=== PATIENT | female | born 1960 | race Caucasian/White ===

== ENCOUNTER 2017-06-03 08:22 | Day surgery (SDC) | payer BC ==
[~2017-06-03 08:22] MED LIST: Cefuroxime 10 MG/ML SYRINGE EYERT SCH; Lidocaine 1% PF 2 ML SDV INJECT SCH; Pilocarpine 4% Ophth Soln 15 ML Bot EYERT SCH
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
[2017-06-03] MEDS: Polymyxin B/Trimethoprim 10 ML Bottle EYERT SCH ×3 (09:06→10:44)
[2017-06-03] MEDS: Brimonidine 0.2% Ophth Soln 5 ML Bottle EYERT SCH ×3 (09:12→10:44)
[2017-06-03] MEDS: Phenylephrine 2.5% Ophth Soln 2 ML Bot EYERT SCH ×5 (09:19→10:28)
[2017-06-03] MEDS ORDERED: Sodium Chloride 0.9% 10 ML Syringe FLUSH PRN (09:52)
[2017-06-03] MEDS: Tetracaine HCl/PF 0.5% 4 ML Bottle EYERT SCH ×2 (10:25→10:38)
[2017-06-03] MEDS ORDERED: Midazolam 1 MG/ML 2 ML SDV ONE (10:27)
--- NOTE | 2017-06-03 10:45 | PCM48HPAN ---
Post Anesthesia Note - EVALUATION WITHIN 48HRS OF ANESTHETIC Vital Signs in Normal Range: Yes Patient Participated in Evaluation: Yes Respiratory Function Stable: Yes Airway Patent: Yes Cardiovascular Function Stable: Yes Hydration Status Stable: Yes Pain Control Satisfactory: Yes Nausea and Vomiting Control Satisfactory: Yes Mental Status Recovered: Yes Pulse Rate: 82 Resp Rate: 18 Temperature: 97 C Blood Pressure: 121/98
== END 2017-06-03 11:10 | disposition home or self-care (01) ==
LOC: JD.SDS 08:22
PROVIDERS: ATTEND Ophthalmology
DX: H25.813 Combined forms of age-related cataract, bilateral (principal); H50.012 Monocular esotropia, left eye; H18.59 Other hereditary corneal dystrophies; H35.373 Puckering of macula, bilateral; H16.223 Keratoconjunctivitis sicca, not specified as Sjogren's, bilateral; H16.103 Unspecified superficial keratitis, bilateral; E11.9 Type 2 diabetes mellitus without complications; D64.9 Anemia, unspecified; E78.00 Pure hypercholesterolemia, unspecified; I10 Essential (primary) hypertension; K21.9 Gastro-esophageal reflux disease without esophagitis; M79.7 Fibromyalgia; E03.9 Hypothyroidism, unspecified; Z79.82 Long term (current) use of aspirin; Z79.899 Other long term (current) drug therapy; Z79.84 Long term (current) use of oral hypoglycemic drugs; Z87.442 Personal history of urinary calculi; Z98.51 Tubal ligation status; Z98.890 Other specified postprocedural states; Z88.1 Allergy status to other antibiotic agents; Z88.6 Allergy status to analgesic agent; Z88.8 Allergy status to other drugs, medicaments and biological substances; Z91.012 Allergy to eggs
CPT/HCPCS: 66984; C1780; J0697; J2250; A9270-GY; J2001

== ENCOUNTER 2017-09-02 06:54 | Day surgery (SDC) | payer BC ==
[~2017-09-02 06:54] MED LIST changes: +Cefuroxime 10 MG/ML SYRINGE EYELF SCH; -Cefuroxime 10 MG/ML SYRINGE EYERT SCH; +Pilocarpine 4% Ophth Soln 15 ML Bot EYELF SCH; -Pilocarpine 4% Ophth Soln 15 ML Bot EYERT SCH
[2017-09-02] MEDS: Polymyxin B/Trimethoprim 10 ML Bottle EYELF SCH ×3 (07:06→08:33)
[2017-09-02] MEDS: Brimonidine 0.2% Ophth Soln 5 ML Bottle EYELF SCH ×3 (07:11→08:33)
[2017-09-02] MEDS: Phenylephrine 2.5% Ophth Soln 2 ML Bot EYELF SCH ×5 (07:17→08:11)
--- NOTE | 2017-09-02 07:19 | PCM.PREANE ---
Preanesthetic Assessment - Anesthesia/Transfusion/Family Hx Anesthesia History: Prior Anesthesia Reaction (PAUL) Family History of Anesthesia Reaction: No Transfusion History: Prior Transfusion Without Reaction Intubation History: Unknown - Review of Systems General: No Symptoms Pulmonary: No Symptoms Cardiovascular: No Symptoms Gastrointestinal: No Symptoms Neurological: No Symptoms Other: Reports: None - Physical Assessment NPO Status Date: 09/01/17 NPO Status Time: 19:30 Pulse: 77 O2 Sat by Pulse Oximetry: 97 Respiratory Rate: 16 Blood Pressure: 129/81 Temperature: 98.7 C ASA Class: 2 Mental Status: Alert & Oriented x3 Airway Class: Mallampati = 1 Dentition: Reports: Normal Dentition Thyro-Mental Finger Breadths: 3 Mouth Opening Finger Breadths: 3 ROM/Head Extension: Full Lungs: Clear to Auscultation, Normal Respiratory Effort Cardiovascular: Regular Rate, Regular Rhythm - Allergies Allergies/Adverse Reactions: Allergies Allergy/AdvReac Type Severity Reaction Status Date / Time ciprofloxacin [From Cipro] AdvReac Nausea Verified 09/01/17 14:12 dantrolene AdvReac Dizziness Verified 09/01/17 14:12 egg AdvReac Nausea Verified 09/01/17 14:12 tramadol AdvReac Dizziness Verified 09/01/17 14:12 - Anesthesia Plan Beta Betty: Atenolol Med Last Dose Date: 09/02/17 Med Last Dose Time: 19:00 - Acknowledgements Anesthesia Type Planned: MAC Pt an Appropriate Candidate for the Planned Anesthesia: Yes Alternatives and Risks of Anesthesia Discussed w Pt/Guardian: Yes Pt/Guardian Understands and Agrees with Anesthesia Plan: Yes PreAnesthesia Questionnaire HEENT History: Reports: Cataract, Hard of Hearing, Other (See Below) (Dry Mouth) Cardiovascular History: Reports: Heart Murmur, Hypertension, Other (See Below) ( Tachycardia) Other Cardiovascular History: hx tachycardia Respiratory History: Reports: None Gastrointestinal History: Reports: GERD (tx with nexium with success) Genitourinary History: Reports: Renal Calculus Musculoskeletal History: Reports: Fibromyalgia Other Musculoskeletal History: Headache, muscle aches, numbness in left leg Neurological History: Reports: Headaches, Chronic, Neuropathy, Peripheral Psychiatric History: Reports: None Endocrine/Metabolic History: Reports: Diabetes, Type II (BS 108 @ 0530), Hypothyroidism Other Endocrine/Metabolic History: 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 Hematologic History: Reports: Anemia (Transfusions in the past), Blood Transfusion(s), Other (See Below) (High Cholesterol) Other Immunologic History: Raynauds - Infectious Disease History Infectious Disease History: Reports: None - Past Surgical History Head Surgeries/Procedures: Reports: None HEENT Surgical History: Reports: Cataract Surgery Cardiovascular Surgical History: Reports: None Respiratory Surgical History: Reports: None GI Surgical History: Reports: Cholecystectomy Female Surgical History: Reports: D&C, Kidney stone extraction, Lithotripsy/ ESWL, Tubal Ligation Endocrine Surgical History: Reports: None, Other (See Below) (parathyroid "tumor " per pt) Neurological Surgical History: Reports: Laminectomy Musculoskeletal Surgical History: Reports: None Oncologic Surgical History: Reports: None Dermatological Surgical History: Reports: None - HOME MEDS Home Medications: Home Meds Aspirin/Acetaminophen/Caffeine [Migraine Formula Caplet] 1 - 2 tab PO Q6H PRN [History] Atenolol 50 mg PO DAILY 06/02/17 [History] Cyclobenzaprine HCl 10 mg PO BEDTIME PRN 06/02/17 [History] Esomeprazole Magnesium 40 mg PO DAILY 06/02/17 [History] Naltrexone 50 mg PO BID 06/02/17 [History] buPROPion HCl [Wellbutrin Xl] 150 mg PO BID 06/02/17 [History] metFORMIN HCl [Metformin HCl ER] 500 mg PO BEDTIME 06/02/17 [History] - CURRENT (IN HOUSE) MEDS Current Meds: Current Medications Brimonidine Tartrate (Alphagan 0.2% Ophth Soln) 0 ml EYELF ASDIRECTED YOUNG Stop: 09/02/17 18:00 Last Admin: 09/02/17 07:11 Dose: 1 drop Cefuroxime Sodium (Zinacef) 0 mg EYELF ASDIRECTED YOUNG Stop: 09/02/17 18:00 Lidocaine HCl (Xylocaine-Mpf 1%) 0 ml INJECT ASDIRECTED YOUNG Stop: 09/02/17 18:00 Phenylephrine HCl (Timothy-Synephrine 2.5% Ophth Soln) 0 ml EYELF ASDIRECTED YOUNG Stop: 09/02/17 18:00 Pilocarpine HCl (Pilocar 4% Ophth Soln) 0 ml EYELF ASDIRECTED YOUNG Stop: 09/02/17 18:00 Polymyxin/Trimethoprim Sulfate (Polytrim Ophth Soln) 0 ml EYELF ASDIRECTED YOUNG Stop: 09/02/17 18:00 Last Admin: 09/02/17 07:06 Dose: 1 drop Tetracaine HCl (Tetracaine 0.5% Steri-Unit Tasia) 0 ml EYELF ASDIRECTED YOUNG Stop: 09/02/17 18:00 Tropicamide (Mydriacyl 1% Ophth Soln) 0 ml EYELF ASDIRECTED YOUNG Stop: 09/02/17 18:00
[2017-09-02] MEDS: Tropicamide 1% Ophth Soln 3 ML Bottle EYELF SCH ×4 (07:22→07:55)
[2017-09-02] MEDS ORDERED: Diazepam 5 MG Tab PO ONE (07:45)
[2017-09-02] MEDS: Tetracaine HCl/PF 0.5% 4 ML Bottle EYELF SCH ×2 (08:02→08:23)
--- NOTE | 2017-09-02 08:35 | PCM48HPAN ---
Post Anesthesia Note - EVALUATION WITHIN 48HRS OF ANESTHETIC Vital Signs in Normal Range: Yes Patient Participated in Evaluation: Yes Respiratory Function Stable: Yes Airway Patent: Yes Cardiovascular Function Stable: Yes Hydration Status Stable: Yes Pain Control Satisfactory: Yes Nausea and Vomiting Control Satisfactory: Yes Mental Status Recovered: Yes Pulse Rate: 81 SaO2: 98 Resp Rate: 14 Temperature: 98.7 C Blood Pressure: 153/85
== END 2017-09-02 08:45 | disposition home or self-care (01) ==
LOC: JD.SDS 06:54
PROVIDERS: ATTEND Ophthalmology
DX: E11.36 Type 2 diabetes mellitus with diabetic cataract (principal); H25.812 Combined forms of age-related cataract, left eye; I10 Essential (primary) hypertension; H91.90 Unspecified hearing loss, unspecified ear; E78.00 Pure hypercholesterolemia, unspecified; H50.012 Monocular esotropia, left eye; E03.9 Hypothyroidism, unspecified; Z79.84 Long term (current) use of oral hypoglycemic drugs; Z79.899 Other long term (current) drug therapy; Z98.41 Cataract extraction status, right eye; Z96.1 Presence of intraocular lens; Z88.1 Allergy status to other antibiotic agents; Z88.5 Allergy status to narcotic agent; Z88.8 Allergy status to other drugs, medicaments and biological substances; Z91.012 Allergy to eggs
CPT/HCPCS: 66984; A9270; C1780; J0697; J2001

== ENCOUNTER 2020-05-08 01:09 | Emergency (ER) | payer BC ==
[2020-05-08] MEDS ORDERED: Ondansetron 4 MG/2 ML SDV IVPUSH ONE ×2 (01:32→03:59)
[2020-05-08] MEDS ORDERED: HYDROmorphone 1 MG/ML Syringe IVPUSH STA (01:32)
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
[2020-05-08] MEDS ORDERED: Sodium Chloride 0.9% 1,000 ML IV SCH (01:45)
[2020-05-08] MEDS ORDERED: Iopamidol 612 MG/ML 100 ML Bottle IVPUSH ONE (02:06)
[2020-05-08] MEDS ORDERED: Sodium Chloride 0.9% 100 ML IV SCH (02:15)
[2020-05-08] MEDS ORDERED: Sodium Chloride 0.9% 10 ML Syringe FLUSH SCH (02:15)
[2020-05-08] MEDS ORDERED: Sodium Chloride 0.9% 1,000 ML IV ONE (03:14)
--- NOTE | 2020-05-08 08:19 | CT ---
CT abdomen and pelvis Technique: Multiple axial sections were obtained from above the dome of the diaphragm inferiorly through the pubic symphysis. Intravenous and oral contrast was utilized. Delayed images were also obtained through the abdomen and pelvis. Reconstructed coronal and sagittal images were obtained. Comparison: No prior abdominal imaging is available. Findings: Visualized lung bases show nothing acute. Liver shows diffuse fatty infiltration. Two low density lesions are seen within the liver which do not appear to represent cysts and most likely represent small hemangiomas which measure less than 1 cm. Spleen is normal. Small to moderate size hiatal hernia is seen. Diffuse gastroesophageal reflux of contrast is seen. Adrenal glands show no nodule. No abnormality is appreciated within the pancreas. Kidneys show symmetric contrast enhancement without hydronephrosis or mass. Delayed images show contrast within the collecting system of both kidneys which show no filling defects. Contrast is also noted within the ureters and bladder. Abdominal aorta shows no aneurysm. Gallbladder is not visualized. No retroperitoneal adenopathy or mesenteric abnormalities are seen. No pelvic mass or adenopathy is seen. Uterus appears normal in size. Small fat-containing umbilical hernia is noted. Minimal degenerative change is seen within the spine. Deformity is noted within the posterior left seventh rib compatible with old healed fracture. Appendix is not visualized with certainty. Impression: 1. Fatty infiltration within the liver. Two small abnormalities are seen within the liver which are most likely solid and statistically are most likely due to small hemangiomas. 2. Hiatal hernia with gastroesophageal reflux of contrast. 3. Nothing acute is otherwise seen on CT study of the abdomen and pelvis. Diagnostic code #2 I agree with preliminary report from [facility], finalized on 05/08/20, 4:53 AM CDT
== END 2020-05-08 04:44 | disposition home or self-care (01) ==
LOC: JD.ED 01:09
DX: R10.84 Generalized abdominal pain (principal); R73.9 Hyperglycemia, unspecified; E87.0 Hyperosmolality and hypernatremia; D72.829 Elevated white blood cell count, unspecified; I10 Essential (primary) hypertension; K21.9 Gastro-esophageal reflux disease without esophagitis; E66.9 Obesity, unspecified; Z68.41 Body mass index [BMI] 40.0-44.9, adult; Z88.1 Allergy status to other antibiotic agents; Z91.012 Allergy to eggs; Z88.5 Allergy status to narcotic agent; Z88.8 Allergy status to other drugs, medicaments and biological substances; Z79.82 Long term (current) use of aspirin; Z79.899 Other long term (current) drug therapy
CPT/HCPCS: 36415; 74177; 80053; 81001; 83690; 83735; 85007; 85027; 96374; 96375; 96376; 99284; J1170; J2405; J7030; Q9967

== ENCOUNTER 2023-02-14 20:34 | Inpatient (IN) | payer BC ==
[2023-02-14] MEDS ORDERED: Sodium Chloride 0.9% 10 ML Syringe FLUSH PRN (20:58)
[2023-02-14 21:22] LABS: HEMATOCRIT 32.2 % (37.0-47.0); HEMOGLOBIN 10.7 gm/dl (12.0-16.0); MEAN CORPUSCULAR HEMOGLOBIN 31.8 pg (28.0-32.0); MEAN CORPUSCULAR HGB CONC 33.2 g/dl (32.0-36.0); MEAN CORPUSCULAR VOLUME 95.5 fl (83.0-99.0); MEAN PLATELET VOLUME 9.9 fl (9.4-12.3); NRBC ABSOLUTE 0.03 (0.00-0.02); NRBC PERCENT 3.2 % (0.0-0.2); PLATELET COUNT,PLT 142 K/mm3 (150-400); RED BLOOD CELL COUNT 3.37 M/mm3 (4.10-5.30)
[2023-02-14 21:27] LABS: WHITE BLOOD CELL COUNT,WBC 0.94 K/mm3 (3.9-11.3)
[2023-02-14 21:39] LABS: INR 1.02; PROTHROMBIN TIME 10.9 SECONDS (9.7-12.0)
[2023-02-14] MEDS ORDERED: Ondansetron 4 MG/2 ML SDV IVPUSH ONE (21:49)
[2023-02-14] MEDS ORDERED: Sodium Chloride 0.9% 1,000 ML IV STA (21:49)
[2023-02-14 21:50] LABS: LACTIC ACID 2.4 mmol/L (0.4-2.0)
[2023-02-14 21:53] LABS: A/G RATIO 0.9 (1-2); ALBUMIN 3.7 g/dl (3.4-5.0); ANION GAP 14.9 (5-15); BILIRUBIN TOTAL 0.6 mg/dL (0.2-1.0); BUN/CREATININE RATIO 5.5 (14-18); C-REACTIVE PROTEIN 10.7 mg/dL (<1.0); CALCIUM 9.3 mg/dL (8.5-10.1); CREATININE 1.1 mg/dL (0.55-1.02); EST CRCL DRUG DOSING (CG) 50.9 mL/min; POTASSIUM,K 3.9 mEq/L (3.5-5.1); PROTEIN TOTAL,TP 7.7 g/dl (6.4-8.2)
[2023-02-14] MEDS ORDERED: Piperacillin/Tazobactam 4.5 GM in Sodium Chloride 0.9% 100 ML IV ONE (22:11)
[2023-02-14] MEDS ORDERED: Acetaminophen 325 MG Tab PO ONE (22:11)
[2023-02-14] MEDS ORDERED: Lidocaine/Epineph/Tetracaine 3 ML Syringe TOP ONE (22:20)
[2023-02-14 22:38] LABS: BAND PERCENT MAN 0 % (0-10); BASOPHILS PERCENT MAN 0 (0.1-1.2); EOSINOPHILS PERCENT MAN 0 % (0.7-5.8); LYMPHOCYTES % ATYPICAL MANUAL 0 %; LYMPHOCYTES PERCENT MAN 87 % (20-40); MONOCYTES PERCENT MAN 4 % (2-10)
[2023-02-14 22:41] LABS: PLATELET COUNT ESTIMATE DECREASED
[2023-02-14 22:43] LABS: CORONAVIRUS COVID-19 NAA NEGATIVE (NEGATIVE); INFLUENZA A NAA NEGATIVE (NEGATIVE); RESPIRATORY SYNCYTIAL VIR NAA NEGATIVE (NEGATIVE)
[2023-02-14 22:44] LABS: OVALOCYTES 1+ SLIGHT; STOMATOCYTES 1+ SLIGHT
[2023-02-14 22:50] LABS: APPEARANCE,URINE CLEAR (Clear); BILIRUBIN,URINE NEGATIVE (Negative); COLOR,URINE YELLOW (Yellow); GLUCOSE,URINE 1+ (Negative); KETONES,URINE 1+ (Negative); LEUKOCYTE ESTERASE,URINE NEGATIVE (Negative); NITRITE,URINE NEGATIVE (Negative); OCCULT BLOOD,URINE NEGATIVE (Negative); PROTEIN,URINE NEGATIVE (Negative); UROBILINOGEN,URINE 0.2 (0.2-1.0)
[2023-02-15] MEDS: METAXALONE 800 MG PO SCH ×3 (00:48→23:30)
[2023-02-15] MEDS: Sodium Chloride 0.9% 1,000 ML IV SCH ×3 (00:51→23:19)
[2023-02-15] MEDS: Acetaminophen 325 MG Tab PO PRN ×3 (05:21→23:19)
[2023-02-15] MEDS: Ondansetron 4 MG/2 ML SDV IVPUSH PRN ×2 (05:21→17:46)
[2023-02-15] MEDS: Piperacillin/Tazobactam 4.5 GM in Sodium Chloride 0.9% 100 ML IV SCH ×3 (05:22→22:27)
[2023-02-15 05:27] LABS: BASOPHILS PERCENT AUTO 1.8 % (0.0-1.0); HEMATOCRIT 25.7 % (37.0-47.0); LYMPHOCYTES ABSOLUTE AUTO 0.4 K/mm3 (1.0-4.8); LYMPHOCYTES PERCENT AUTO 61.4 % (24.0-44.0); MEAN CORPUSCULAR HEMOGLOBIN 32.1 pg (28.0-32.0); MEAN CORPUSCULAR HGB CONC 33.9 g/dl (32.0-36.0); MEAN CORPUSCULAR VOLUME 94.8 fl (83.0-99.0); MONOCYTES ABSOLUTE AUTO 0.2 K/mm3 (0.0-0.8); MONOCYTES PERCENT AUTO 28.1 % (0.0-8.0); NEUTROPHILS ABSOLUTE AUTO 0.1 K/mm3 (1.8-7.7); NEUTROPHILS PERCENT AUTO 8.7 % (41.0-71.0); NRBC ABSOLUTE 0.02 (0.00-0.02); NRBC PERCENT 3.5 % (0.0-0.2); PLATELET COUNT,PLT 109 K/mm3 (150-400); RED BLOOD CELL COUNT 2.71 M/mm3 (4.10-5.30)
[2023-02-15 05:34] LABS: HEMOGLOBIN 8.7 gm/dl (12.0-16.0); WHITE BLOOD CELL COUNT,WBC 0.57 K/mm3 (3.9-11.3)
[2023-02-15 05:57] LABS: ANION GAP 12.6 (5-15); BUN/CREATININE RATIO 7.1 (14-18); CALCIUM 8.1 mg/dL (8.5-10.1); CREATININE 0.7 mg/dL (0.55-1.02); EST CRCL DRUG DOSING (CG) 79.99 mL/min; POTASSIUM,K 3.6 mEq/L (3.5-5.1)
[2023-02-15 06:09] LABS: SLIDE REVIEW ABNORMAL SMEAR
[2023-02-15] MEDS ORDERED: Ondansetron 4 MG Tab.DIS PO PRN (06:35)
[2023-02-15] MEDS: Heparin Sodium 5,000 Units/ML Vial SUBCUT SCH ×3 (06:58→22:28)
[2023-02-15] MEDS: Pantoprazole 40 MG Tab.CR PO SCH (07:42)
[2023-02-15] MEDS ORDERED: Atenolol 50 MG Tab PO SCH (09:00)
[2023-02-15] MEDS: Atenolol 25 MG Tab PO SCH (11:20)
[2023-02-15] MEDS ORDERED: NALTREXONE PO SCH (11:30)
[2023-02-15] MEDS ORDERED: BUPROPION PO SCH (11:30)
[2023-02-15] MEDS: metFORMIN 500 MG Tab PO SCH (17:22)
[2023-02-15] MEDS ORDERED: metFORMIN 500 MG Tab PO SCH (21:00)
[2023-02-16 05:32] LABS: BASOPHILS PERCENT AUTO 1.9 % (0.0-1.0); EOSINOPHILS PERCENT AUTO 0.9 % (0.0-6.0); HEMATOCRIT 26.4 % (37.0-47.0); HEMOGLOBIN 8.7 gm/dl (12.0-16.0); LYMPHOCYTES ABSOLUTE AUTO 0.7 K/mm3 (1.0-4.8); LYMPHOCYTES PERCENT AUTO 60.7 % (24.0-44.0); MEAN CORPUSCULAR HEMOGLOBIN 32.1 pg (28.0-32.0); MEAN CORPUSCULAR VOLUME 97.4 fl (83.0-99.0); MEAN PLATELET VOLUME 9.3 fl (9.4-12.3); MONOCYTES ABSOLUTE AUTO 0.3 K/mm3 (0.0-0.8); NEUTROPHILS ABSOLUTE AUTO 0.1 K/mm3 (1.8-7.7); NEUTROPHILS PERCENT AUTO 7.5 % (41.0-71.0); PLATELET COUNT,PLT 141 K/mm3 (150-400); RED BLOOD CELL COUNT 2.71 M/mm3 (4.10-5.30)
[2023-02-16 05:43] LABS: WHITE BLOOD CELL COUNT,WBC 1.07 K/mm3 (3.9-11.3)
[2023-02-16] MEDS: Piperacillin/Tazobactam 4.5 GM in Sodium Chloride 0.9% 100 ML IV SCH ×3 (05:46→21:47)
[2023-02-16] MEDS: Heparin Sodium 5,000 Units/ML Vial SUBCUT SCH ×3 (05:47→21:46)
[2023-02-16] MEDS: Pantoprazole 40 MG Tab.CR PO SCH (05:47)
[2023-02-16 05:52] LABS: A/G RATIO 0.8 (1-2); ALBUMIN 2.7 g/dl (3.4-5.0); ANION GAP 15.2 (5-15); BILIRUBIN TOTAL 0.5 mg/dL (0.2-1.0); BUN/CREATININE RATIO 8.6 (14-18); CALCIUM 8.4 mg/dL (8.5-10.1); CREATININE 0.7 mg/dL (0.55-1.02); EST CRCL DRUG DOSING (CG) 79.99 mL/min; POTASSIUM,K 3.2 mEq/L (3.5-5.1); PROTEIN TOTAL,TP 6.2 g/dl (6.4-8.2)
[2023-02-16 06:20] LABS: SLIDE REVIEW ABNORMAL SMEAR
[2023-02-16] MEDS: metFORMIN 500 MG Tab PO SCH ×2 (07:17→17:21)
[2023-02-16] MEDS: Acetaminophen 325 MG Tab PO PRN ×4 (07:18→21:48)
[2023-02-16] MEDS: Sodium Chloride 0.9% 1,000 ML IV SCH ×2 (09:28→21:47)
[2023-02-16] MEDS: Atenolol 25 MG Tab PO SCH ×2 (09:32→20:22)
[2023-02-16] MEDS: BUPROPION PO SCH (09:32)
[2023-02-16] MEDS: NALTREXONE PO SCH (09:32)
[2023-02-16] MEDS: METAXALONE 800 MG PO SCH ×2 (11:43→20:25)
[2023-02-17] MEDS: Heparin Sodium 5,000 Units/ML Vial SUBCUT SCH ×3 (05:10→21:11)
[2023-02-17] MEDS: Pantoprazole 40 MG Tab.CR PO SCH (05:10)
[2023-02-17] MEDS: Piperacillin/Tazobactam 4.5 GM in Sodium Chloride 0.9% 100 ML IV SCH ×3 (05:11→21:04)
[2023-02-17 05:31] LABS: BASOPHILS PERCENT AUTO 0.8 % (0.0-1.0); EOSINOPHILS PERCENT AUTO 1.6 % (0.0-6.0); HEMATOCRIT 24.5 % (37.0-47.0); HEMOGLOBIN 8.1 gm/dl (12.0-16.0); IMMATURE GRAN ABSOLUTE AUTO 0.01 K/mm3 (0.00-0.05); IMMATURE GRAN PERCENT AUTO 0.8 % (0.0-0.4); LYMPHOCYTES ABSOLUTE AUTO 0.6 K/mm3 (1.0-4.8); LYMPHOCYTES PERCENT AUTO 44.4 % (24.0-44.0); MEAN CORPUSCULAR HEMOGLOBIN 31.6 pg (28.0-32.0); MEAN CORPUSCULAR HGB CONC 33.1 g/dl (32.0-36.0); MEAN CORPUSCULAR VOLUME 95.7 fl (83.0-99.0); MEAN PLATELET VOLUME 9.7 fl (9.4-12.3); MONOCYTES ABSOLUTE AUTO 0.4 K/mm3 (0.0-0.8); MONOCYTES PERCENT AUTO 32.3 % (0.0-8.0); NEUTROPHILS ABSOLUTE AUTO 0.3 K/mm3 (1.8-7.7); NEUTROPHILS PERCENT AUTO 20.1 % (41.0-71.0); NRBC ABSOLUTE 0.02 (0.00-0.02); NRBC PERCENT 1.6 % (0.0-0.2); PLATELET COUNT,PLT 203 K/mm3 (150-400); RED BLOOD CELL COUNT 2.56 M/mm3 (4.10-5.30)
[2023-02-17 05:42] LABS: WHITE BLOOD CELL COUNT,WBC 1.24 K/mm3 (3.9-11.3)
[2023-02-17 05:57] LABS: A/G RATIO 0.7 (1-2); ALBUMIN 2.4 g/dl (3.4-5.0); ANION GAP 14.2 (5-15); BILIRUBIN TOTAL 0.3 mg/dL (0.2-1.0); BUN/CREATININE RATIO 5.7 (14-18); CREATININE 0.7 mg/dL (0.55-1.02); EST CRCL DRUG DOSING (CG) 79.99 mL/min; POTASSIUM,K 3.2 mEq/L (3.5-5.1); PROTEIN TOTAL,TP 5.7 g/dl (6.4-8.2)
[2023-02-17 06:13] LABS: SLIDE REVIEW ABNORMAL SMEAR
[2023-02-17] MEDS: metFORMIN 500 MG Tab PO SCH ×2 (07:30→17:21)
[2023-02-17] MEDS: Acetaminophen 325 MG Tab PO PRN ×2 (07:31→19:58)
[2023-02-17] MEDS: Sodium Chloride 0.9% 1,000 ML IV SCH ×2 (07:35→15:15)
[2023-02-17] MEDS: METAXALONE 800 MG PO SCH ×3 (09:35→20:00)
[2023-02-17] MEDS: BUPROPION PO SCH (09:35)
[2023-02-17] MEDS: NALTREXONE PO SCH (09:35)
[2023-02-17] MEDS: Atenolol 25 MG Tab PO SCH ×2 (19:58→20:53)
[2023-02-18] MEDS: Sodium Chloride 0.9% 1,000 ML IV SCH (01:14)
[2023-02-18] MEDS: Piperacillin/Tazobactam 4.5 GM in Sodium Chloride 0.9% 100 ML IV SCH ×3 (06:18→21:14)
[2023-02-18] MEDS: metFORMIN 500 MG Tab PO SCH ×2 (06:18→16:48)
[2023-02-18] MEDS: Heparin Sodium 5,000 Units/ML Vial SUBCUT SCH ×3 (06:18→21:14)
[2023-02-18] MEDS: Pantoprazole 40 MG Tab.CR PO SCH (06:18)
[2023-02-18] MEDS: NALTREXONE PO SCH (08:41)
[2023-02-18] MEDS: BUPROPION PO SCH (08:41)
[2023-02-18] MEDS ORDERED: Ketorolac 10 MG Tab PO PRN (10:52)
[2023-02-18] MEDS: METAXALONE 800 MG PO SCH ×3 (11:11→21:14)
[2023-02-18] MEDS: Saccharomyces Boulardii (Probiotic) 250 MG Cap PO SCH (11:15)
[2023-02-18 11:41] LABS: BASOPHILS PERCENT AUTO 1.9 % (0.0-1.0); EOSINOPHILS PERCENT AUTO 0.5 % (0.0-6.0); HEMATOCRIT 26.5 % (37.0-47.0); HEMOGLOBIN 8.7 gm/dl (12.0-16.0); IMMATURE GRAN ABSOLUTE AUTO 0.12 K/mm3 (0.00-0.05); IMMATURE GRAN PERCENT AUTO 5.7 % (0.0-0.4); LYMPHOCYTES ABSOLUTE AUTO 0.6 K/mm3 (1.0-4.8); LYMPHOCYTES PERCENT AUTO 26.9 % (24.0-44.0); MEAN CORPUSCULAR HEMOGLOBIN 30.9 pg (28.0-32.0); MEAN CORPUSCULAR HGB CONC 32.8 g/dl (32.0-36.0); MEAN PLATELET VOLUME 9.3 fl (9.4-12.3); MONOCYTES ABSOLUTE AUTO 0.5 K/mm3 (0.0-0.8); MONOCYTES PERCENT AUTO 25.5 % (0.0-8.0); NEUTROPHILS ABSOLUTE AUTO 0.8 K/mm3 (1.8-7.7); NEUTROPHILS PERCENT AUTO 39.5 % (41.0-71.0); NRBC ABSOLUTE 0.06 (0.00-0.02); NRBC PERCENT 2.8 % (0.0-0.2); PLATELET COUNT,PLT 289 K/mm3 (150-400); RED BLOOD CELL COUNT 2.82 M/mm3 (4.10-5.30)
[2023-02-18 11:52] LABS: WHITE BLOOD CELL COUNT,WBC 2.12 K/mm3 (3.9-11.3)
[2023-02-18 12:10] LABS: SLIDE REVIEW ABNORMAL SMEAR
[2023-02-18] MEDS ORDERED: Potassium Chloride 20 MEQ Tab.ER PO ONE (13:16)
[2023-02-18] MEDS ORDERED: Potassium Bicarbonate/Cit Ac 20 MEQ Effervescent Tab PO ONE ×2 (15:00→17:00)
[2023-02-18] MEDS: Acetaminophen 325 MG Tab PO PRN ×2 (15:19→21:13)
[2023-02-18] MEDS: Atenolol 25 MG Tab PO SCH (21:14)
[2023-02-19 05:33] LABS: BASOPHILS PERCENT AUTO 1.7 % (0.0-1.0); HEMATOCRIT 26.1 % (37.0-47.0); HEMOGLOBIN 8.7 gm/dl (12.0-16.0); IMMATURE GRAN PERCENT AUTO 8.6 % (0.0-0.4); LYMPHOCYTES ABSOLUTE AUTO 0.9 K/mm3 (1.0-4.8); LYMPHOCYTES PERCENT AUTO 38.2 % (24.0-44.0); MEAN CORPUSCULAR HGB CONC 33.3 g/dl (32.0-36.0); MEAN CORPUSCULAR VOLUME 92.9 fl (83.0-99.0); MEAN PLATELET VOLUME 9.1 fl (9.4-12.3); MONOCYTES ABSOLUTE AUTO 0.6 K/mm3 (0.0-0.8); NEUTROPHILS ABSOLUTE AUTO 0.6 K/mm3 (1.8-7.7); NEUTROPHILS PERCENT AUTO 27.5 % (41.0-71.0); NRBC PERCENT 4.3 % (0.0-0.2); PLATELET COUNT,PLT 318 K/mm3 (150-400); RED BLOOD CELL COUNT 2.81 M/mm3 (4.10-5.30)
[2023-02-19 06:22] LABS: WHITE BLOOD CELL COUNT,WBC 2.33 K/mm3 (3.9-11.3)
[2023-02-19] MEDS: Heparin Sodium 5,000 Units/ML Vial SUBCUT SCH ×2 (06:23→14:15)
[2023-02-19] MEDS: Piperacillin/Tazobactam 4.5 GM in Sodium Chloride 0.9% 100 ML IV SCH (06:23)
[2023-02-19] MEDS: Pantoprazole 40 MG Tab.CR PO SCH (06:23)
[2023-02-19] MEDS: metFORMIN 500 MG Tab PO SCH (06:23)
[2023-02-19 07:55] LABS: SLIDE REVIEW ABNORMAL SMEAR
[2023-02-19] MEDS: Saccharomyces Boulardii (Probiotic) 250 MG Cap PO SCH (08:08)
[2023-02-19] MEDS: BUPROPION PO SCH (08:08)
[2023-02-19] MEDS: NALTREXONE PO SCH (08:08)
[2023-02-19] MEDS: METAXALONE 800 MG PO SCH (11:06)
[2023-02-19] MEDS: Acetaminophen 325 MG Tab PO PRN (11:07)
[2023-02-19] MEDS ORDERED: Potassium Chloride 20 MEQ Tab.ER PO ONE (13:54)
[2023-02-19] MEDS ORDERED: Potassium Bicarbonate/Cit Ac 20 MEQ Effervescent Tab PO ONE (14:00)
== END 2023-02-19 16:52 | disposition home or self-care (01) | DRG 660 ==
LOC: JD.ED 20:34 → JD.MS 22:55
PROVIDERS: ADMIT Internal Medicine; ATTEND Internal Medicine
DX: D70.1 Agranulocytosis secondary to cancer chemotherapy (principal); D61.818 Other pancytopenia; C50.912 Malignant neoplasm of unspecified site of left female breast; T45.1X5A Adverse effect of antineoplastic and immunosuppressive drugs, initial encounter; D69.6 Thrombocytopenia, unspecified; R50.81 Fever presenting with conditions classified elsewhere; H91.90 Unspecified hearing loss, unspecified ear; I10 Essential (primary) hypertension; K21.9 Gastro-esophageal reflux disease without esophagitis; E66.9 Obesity, unspecified; G62.9 Polyneuropathy, unspecified; E11.9 Type 2 diabetes mellitus without complications; G43.909 Migraine, unspecified, not intractable, without status migrainosus; J06.9 Acute upper respiratory infection, unspecified; D64.9 Anemia, unspecified; E87.6 Hypokalemia; Z88.1 Allergy status to other antibiotic agents; Z88.8 Allergy status to other drugs, medicaments and biological substances; Z79.82 Long term (current) use of aspirin; Z79.84 Long term (current) use of oral hypoglycemic drugs; Z79.899 Other long term (current) drug therapy; Z68.35 Body mass index [BMI] 35.0-35.9, adult; Z98.49 Cataract extraction status, unspecified eye; Z98.890 Other specified postprocedural states; Z90.49 Acquired absence of other specified parts of digestive tract; Z98.51 Tubal ligation status; Z11.52 Encounter for screening for COVID-19; Z91.012 Allergy to eggs
CPT/HCPCS: 0241U; 36415; 71045; 71045-26; 71046; 71046-26; 80048; 80053; 81003; 82947; 83605; 84132; 85007; 85025; 85027; 85610; 86140; 87040; 99285; A9270-GY; J1644; J2405; J2543; J3490; J7030

== ENCOUNTER 2024-02-25 10:23 | Day surgery (SDC) | payer BC ==
[~2024-02-25 10:23] MED LIST changes: -Cefuroxime 10 MG/ML SYRINGE EYELF SCH; +HYDROmorphone 0.5 MG/0.5 ML Syringe IVPUSH PRN; -Lidocaine 1% PF 2 ML SDV INJECT SCH; -Pilocarpine 4% Ophth Soln 15 ML Bot EYELF SCH; +Sodium Chloride 0.9% 10 ML Syringe FLUSH PRN; +Sodium Chloride 0.9% 10 ML Syringe FLUSH SCH; +fentaNYL 100 MCG/2 ML SDV IVPUSH PRN
[2024-02-25] MEDS: Lactated Ringers 1,000 ML IV SCH (11:05)
[2024-02-25] MEDS: Scopalamine 1mg/3day Transdermal Patch TOP ONE (11:22)
[2024-02-25] MEDS ORDERED: Etomidate 2 MG/ML 20 ML SDV IVPUSH ONE (11:55)
[2024-02-25] MEDS ORDERED: Ondansetron 4 MG/2 ML SDV ONE (11:56)
[2024-02-25] MEDS ORDERED: dexmedeTOMIDine HCl 200 MCG/2 ML SDV ONE (11:56)
[2024-02-25] MEDS ORDERED: Esmolol 100 MG/10 ML SDV ONE (12:21)
[2024-02-25] MEDS ORDERED: Ketamine 200 MG/20 ML MDV ONE (12:24)
[2024-02-25] MEDS: Ondansetron 4 MG/2 ML SDV IVPUSH PRN (12:54)
== END 2024-02-25 14:15 | disposition home or self-care (01) ==
LOC: JD.SDS 10:23
PROVIDERS: ATTEND Surgery
DX: K29.50 Unspecified chronic gastritis without bleeding (principal); K20.90 Esophagitis, unspecified without bleeding; K44.9 Diaphragmatic hernia without obstruction or gangrene; I10 Essential (primary) hypertension; E66.9 Obesity, unspecified; Z88.8 Allergy status to other drugs, medicaments and biological substances; Z91.018 Allergy to other foods; Z79.899 Other long term (current) drug therapy; Z68.30 Body mass index [BMI] 30.0-30.9, adult
CPT/HCPCS: 43239; 82947; A9270; J2405; J3490; J7120; 00731